=== PATIENT | male | born 1980 | race African-American/Black ===

== ENCOUNTER 2017-04-28 14:06 | Inpatient (IN) | payer OTHER ==
--- NOTE | 2017-04-28 14:44 | ED PDOC ---
HPI: General Adult Time Seen by Provider: 04/28/17 14:30 Chief Complaint (Nursing): Abnormal Labs Chief Complaint (Provider): Myalgias History Per: Patient History/Exam Limitations: no limitations Additional Complaint(s): Patient is a 37 y/o male with past medical history of rhabdomyolysis (no workup for underlying cause) presenting to the emergency department for evaluation of elevated creatinine and CK levels measured at Urgent Care prior to arrival. Patient complains of myalgia and a fever of 102 degrees fahrenheit after working out intensely two days ago. Of note, a rapid strep and rapid flu test were also done at Urgent Care, with negative findings. Denies chest pain, cough , upper respiratory infection symptoms, abdominal pain, nausea, vomiting, diarrhea, or other complaints. Denies medication use PCP: none provided. Past Medical History Reviewed: Historical Data, Nursing Documentation, Vital Signs Vital Signs: Last Vital Signs Temp 99.3 F 04/28/17 16:18 Pulse 79 04/28/17 14:22 Resp 16 04/28/17 14:22 BP 133/66 04/28/17 14:22 Pulse Ox 100 04/28/17 16:19 - Medical History Other PMH: rhabdomyolysis - Surgical History Surgical History: No Surg Hx - Family History Family History: States: Unknown Family Hx - Social History Current smoker - smoking cessation education provided: No Ex-Smoker (has not smoked in the last 12 months): No Alcohol: None Drugs: Denies - Home Medications Home Medications: Ambulatory Orders Medication Instructions Recorded No Known Home Med 04/28/17 - Allergies Allergies/Adverse Reactions: Allergies Allergy/AdvReac Type Severity Reaction Status Date / Time No Known Allergies Allergy Verified 04/28/17 14:21 Review of Systems ROS Statement: Except As Marked, All Systems Reviewed And Found Negative Constitutional: Positive for: Fever, Other (Body aches) ENT: Negative for: Nose Congestion, Throat Pain Cardiovascular: Negative for: Chest Pain Respiratory: Negative for: Cough Gastrointestinal: Negative for: Nausea, Vomiting, Abdominal Pain, Diarrhea Physical Exam - Reviewed Nursing Documentation Reviewed: Yes Vital Signs Reviewed: Yes - Physical Exam Appears: Positive for: Well, Non-toxic, No Acute Distress Head Exam: Positive for: ATRAUMATIC Skin: Positive for: Normal Color, Warm, Dry Eye Exam: Positive for: Normal appearance ENT: Positive for: Normal ENT Inspection Neck: Positive for: Normal, Painless ROM Cardiovascular/Chest: Positive for: Regular Rate, Rhythm. Negative for: Murmur Respiratory: Positive for: Normal Breath Sounds. Negative for: Accessory Muscle Use, Respiratory Distress Gastrointestinal/Abdominal: Positive for: Normal Exam, Soft. Negative for: Tenderness Extremity: Positive for: Normal ROM. Negative for: Pedal Edema Neurologic/Psych: Positive for: Alert, Oriented (x3). Negative for: Motor/ Sensory Deficits - Laboratory Results Result Diagrams: 04/28/17 14:35 04/28/17 14:35 - ECG O2 Sat by Pulse Oximetry: 100 (RA) Pulse Ox Interpretation: Normal Medical Decision Making Medical Decision Making: Time: 14:38 Initial impression: Myalgia Initial plan: CT A/P without contrast Labs Chest X-ray Normal Saline 2 L V Urinalysis Reevaluation Patient will be treated with fluid rehydration. 14:58 Chest X-ray reviewed. Findings noted as follows: LUNGS: No active pulmonary disease. PLEURA: No significant pleural effusion identified, no pneumothorax apparent. CARDIOVASCULAR: Normal. OSSEOUS STRUCTURES: No significant abnormalities. VISUALIZED UPPER ABDOMEN: Normal. OTHER FINDINGS: None. IMPRESSION: No active disease. Scribe Attestation: Documented by Nan Rae, acting as a scribe for Lacie Flores MD. Provider Scribe Attestation: All medical record entries made by the Scribe were at my direction and personally dictated by me. I have reviewed the chart and agree that the record accurately reflects my personal performance of the history, physical exam, medical decision making, and the department course for this patient. I have also personally directed, reviewed, and agree with the discharge instructions and disposition. 15:40 FINDINGS: There is limited evaluation of the solid organs without the administration of IV contrast. LOWER THORAX: No visible consolidation, pleural effusion, or pneumothorax. LIVER: Unremarkable unenhanced appearance. GALLBLADDER AND BILE DUCTS: Unremarkable unenhanced appearance. PANCREAS: Unremarkable unenhanced appearance. SPLEEN: Unremarkable unenhanced appearance. ADRENALS: Unremarkable unenhanced appearance. KIDNEYS AND URETERS: No hydronephrosis or obstructing renal calculus. BLADDER: The urinary bladder appears unremarkable. REPRODUCTIVE: Unremarkable. APPENDIX: The appendix appears within normal limits of caliber. No secondary signs of acute appendicitis. BOWEL: The stomach is nondistended. Lack of oral contrast limits evaluation for bowel pathology. The bowel loops appear within normal limits of caliber without evidence of intestinal obstruction. Moderate constipation. PERITONEUM: No significant free fluid. No definite free air. LYMPH NODES: No bulky lymphadenopathy identified. VASCULATURE: No aortic aneurysm. BONES: No acute osseous abnormality is detected. OTHER FINDINGS: None. IMPRESSION: Moderate constipation. 3:40PM Ct negative for acute pathology. Cxray negative. WBC mildly elevated. Creatinine WNL. CK elevated and rising from CK measured at urgent care ([id number]). Electrolytes WNL. EKG shows NSR at 69bpm with normal intervals and no st changes. Will transfer to med/sx observation under Dr. Boston for IV hydration ED OBSERVATION Date of observation admission: 04/28/17 Time of observation admission: 14:25 - Goals of Observation Goals of Observation: Resolution of symptoms Disposition - Clinical Impression Clinical Impression: Rhabdomyolysis - Disposition Disposition Time: 14:25 Condition: STABLE
[2017-04-28] MEDS ORDERED: Sodium Chloride 0.9% 2,000 ML IV SCH (14:45)
[2017-04-28 14:55] LABS: BASO # 0.1 K/uL (0.0-0.2); BASO % 0.4 % (0.0-2.0); EOS % 0.1 % (0.0-4.0); HEMATOCRIT 46.1 % (35.0-51.0); LYMPH # 1.4 K/uL (1.0-4.3); LYMPH % 9.4 % (20.0-40.0); MEAN CELL VOLUME 86.4 fl (80.0-94.0); MEAN CORPUSCULAR HEMOGLOBIN 28.7 pg (27.0-31.0); MEAN CORPUSCULAR HGB CONC 33.2 g/dL (33.0-37.0); MEAN PLATELET VOLUME 9.2 fl (7.2-11.7); NEUT # 12.4 K/uL (1.8-7.0); NEUT % 83.1 % (50.0-75.0); NRBC % 0.2 % (0.0-0.0); PLATELET COUNT 214 K/uL (130-400); RED CELL DISTRIBUTION WIDTH 13.2 % (11.5-14.5); WHITE BLOOD COUNT 14.9 K/uL (4.8-10.8)
--- NOTE | 2017-04-28 14:59 | RAD ---
HISTORY: Fever. COMPARISON: No prior. FINDINGS: LUNGS: No active pulmonary disease. PLEURA: No significant pleural effusion identified, no pneumothorax apparent. CARDIOVASCULAR: Normal. OSSEOUS STRUCTURES: No significant abnormalities. VISUALIZED UPPER ABDOMEN: Normal. OTHER FINDINGS: None. IMPRESSION: No active disease. Please note: No preliminary report/ innterpretation of this examination provided by emergency department personnel.
[2017-04-28 15:01] LABS: ALB/GLOB RATIO 1.4 (1.0-2.1); ALKALINE PHOSPHATASE 70 U/L (38-126); ALT/SGPT 68 U/L (21-72); AST/SGOT 119 U/L (17-59); BILIRUBIN,TOTAL 1.1 mg/dl (0.2-1.3); BLOOD UREA NITROGEN 10 mg/dl (9-20); CALCIUM 9.7 mg/dL (8.4-10.2); CARBON DIOXIDE 23 mmol/L (22-30); CHLORIDE 104 mmol/L (98-107); GFR AFRICAN-AMERICAN > 60; GLUCOSE,RANDOM 110 mg/dL (75-110); MAGNESIUM 2.3 MG/DL (1.6-2.3); PHOSPHOROUS 3.8 mg/dl (2.5-4.5); SODIUM 143 mmol/l (132-148); TOTAL PROTEIN 8.1 G/DL (6.3-8.2)
[2017-04-28 15:16] LABS: RBC URINE 1 /hpf (0-3); URINE BACTERIA RARE (<OCC); URINE BILIRUBIN NEGATIVE (NEGATIVE); URINE BLOOD MODERATE (NEGATIVE); URINE COLOR STRAW (YELLOW); URINE GLUCOSE (UA) NEG (Normal); URINE KETONE NEGATIVE (NEGATIVE); URINE LEUKOCYTE ESTERASE NEG Leu/uL (Negative); URINE PROTEIN NEGATIVE (NEGATIVE); URINE UROBILINOGEN 0.2-1.0 mg/dL (0.2-1.0)
[2017-04-28 15:35] LABS: WBC URINE < 1 /hpf (0-5)
--- NOTE | 2017-04-28 15:40 | CT ---
PROCEDURE: CT Abdomen and Pelvis without Oral or IV contrast. HISTORY: hematuria, fever COMPARISON: None available. TECHNIQUE: Contiguous axial images of the abdomen and pelvis. No oral or IV contrast administered. Coronal and Sagittal reformats generated and reviewed. Radiation dose: Total exam DLP = 468.72 mGy-cm. This CT exam was performed using one or more of the following dose reduction techniques: Automated exposure control, adjustment of the mA and/or kV according to patient size, and/or use of iterative reconstruction technique. FINDINGS: There is limited evaluation of the solid organs without the administration of IV contrast. LOWER THORAX: No visible consolidation, pleural effusion, or pneumothorax. LIVER: Unremarkable unenhanced appearance. GALLBLADDER AND BILE DUCTS: Unremarkable unenhanced appearance. PANCREAS: Unremarkable unenhanced appearance. SPLEEN: Unremarkable unenhanced appearance. ADRENALS: Unremarkable unenhanced appearance. KIDNEYS AND URETERS: No hydronephrosis or obstructing renal calculus. BLADDER: The urinary bladder appears unremarkable. REPRODUCTIVE: Unremarkable. APPENDIX: The appendix appears within normal limits of caliber. No secondary signs of acute appendicitis. BOWEL: The stomach is nondistended. Lack of oral contrast limits evaluation for bowel pathology. The bowel loops appear within normal limits of caliber without evidence of intestinal obstruction. Moderate constipation. PERITONEUM: No significant free fluid. No definite free air. LYMPH NODES: No bulky lymphadenopathy identified. VASCULATURE: No aortic aneurysm. BONES: No acute osseous abnormality is detected. OTHER FINDINGS: None. IMPRESSION: Moderate constipation.
[2017-04-28 15:50] LABS: NEUTROPHIL 85 % (42-75); TOTAL CELLS COUNTED 100
[2017-04-28] MEDS ORDERED: Sodium Chloride 0.9% 1,000 ML IV SCH (16:30)
[2017-04-28] MEDS: Sodium Chloride 0.9% 1,000 ML IV SCH ×2 (22:14)
--- NOTE | 2017-04-28 22:54 | CP.PCM.HP ---
History of Present Illness - History of Present Illness History of Present Illness: A 37 y/o male with past medical history of rhabdomyolysis (no workup for underlying cause) came to the emergency department for evaluation of elevated creatinine and CK levels measured at Urgent Care prior to arrival. Patient complains of myalgia and a fever of 102 degrees fahrenheit after working out intensely two days ago. Of note, a rapid strep and rapid flu test were also done at Urgent Care, with negative findings. Denies chest pain, cough, upper respiratory infection symptoms, abdominal pain, nausea, vomiting, diarrhea, or other complaints. Denies medication use Present on Admission - Present on Admission Any Indicators Present on Admission: No History of DVT/PE: No History of Uncontrolled Diabetes: No Urinary Catheter: No Decubitus Ulcer Present: No Review of Systems - Cardiovascular Cardiovascular: absent: Chest Pain - Respiratory Respiratory: absent: Cough - Gastrointestinal Gastrointestinal: absent: Abdominal Pain Past Patient History - Past Medical History & Family History Past Medical History?: No - Past Social History Smoking Status: Never Smoked - CARDIAC Hx Cardiac Disorders: No - PULMONARY Hx Respiratory Disorders: No - NEUROLOGICAL Hx Neurological Disorder: No - HEENT Hx HEENT Problems: No - RENAL Hx Chronic Kidney Disease: No - ENDOCRINE/METABOLIC Hx Endocrine Disorders: No - HEMATOLOGICAL/ONCOLOGICAL Hx Blood Disorders: No - INTEGUMENTARY Hx Dermatological Problems: No - MUSCULOSKELETAL/RHEUMATOLOGICAL Hx Falls: No - GENITOURINARY/GYNECOLOGICAL Hx Genitourinary Disorders: No - PSYCHIATRIC Hx Substance Use: No - SURGICAL HISTORY Hx Surgeries: No - ANESTHESIA Hx Anesthesia: No Meds Allergies/Adverse Reactions: Allergies Allergy/AdvReac Type Severity Reaction Status Date / Time No Known Allergies Allergy Verified 04/28/17 14:21 Physical Exam - Constitutional Appears: Non-toxic - Neck Exam Neck exam: Positive for: Full Rom - Respiratory Exam Respiratory Exam: Clear to Auscultation Bilateral, NORMAL BREATHING PATTERN - Cardiovascular Exam Cardiovascular Exam: REGULAR RHYTHM. absent: Systolic Murmur - GI/Abdominal Exam GI & Abdominal Exam: Normal Bowel Sounds, Soft. absent: Tenderness Results - Vital Signs Recent Vital Signs: Last Vital Signs Temp 99.7 F H 04/28/17 18:17 Pulse 77 04/28/17 18:17 Resp 18 04/28/17 18:17 BP 115/71 04/28/17 18:17 Pulse Ox 97 04/28/17 18:17 - Labs Result Diagrams: 04/28/17 14:35 04/28/17 14:35 Labs: Laboratory Results - last 24 hr 04/28/17 04/28/17 04/28/17 14:35 14:35 14:52 WBC 14.9 H RBC 5.34 Hgb 15.3 Hct 46.1 MCV 86.4 MCH 28.7 MCHC 33.2 RDW 13.2 Plt Count 214 MPV 9.2 Neut % (Auto) 83.1 H Lymph % (Auto) 9.4 L [place] % (Auto) 7.0 Eos % (Auto) 0.1 Baso % (Auto) 0.4 Neut # 12.4 H Lymph # 1.4 [place] # 1.0 H Eos # 0.0 Baso # 0.1 Neutrophils % (Manual) 85 H Lymphocytes % (Manual) 10 L Monocytes % (Manual) 5 Platelet Estimate Normal RBC Morphology Normal Sodium 143 Potassium 4.0 Chloride 104 Carbon Dioxide 23 Anion Gap 20 BUN 10 Creatinine 1.2 Est GFR ( Amer) > 60 Est GFR (Non-Af Amer) > 60 Random Glucose 110 Calcium 9.7 Phosphorus 3.8 Magnesium 2.3 Total Bilirubin 1.1 AST 119 H ALT 68 Alkaline Phosphatase 70 Total Creatine Kinase 83866 H Total Protein 8.1 Albumin 4.7 Globulin 3.4 Albumin/Globulin Ratio 1.4 Urine Color Straw Urine Clarity Clear Urine pH 7.0 Ur Specific [place] < 1.005 Urine Protein Negative Urine Glucose (UA) Neg Urine Ketones Negative Urine Blood Moderate Urine Nitrate Negative Urine Bilirubin Negative Urine Urobilinogen 0.2-1.0 Ur Leukocyte Esterase Neg Urine RBC (Auto) 1 Urine Microscopic WBC < 1 Urine Bacteria Rare Assessment & Plan - Assessment and Plan (Free Text) Assessment: rhabdomyolysis Plan: iv hydration follow up CPK - Date & Time Date: 04/28/17 Time: 22:54
[2017-04-29] MEDS: Sodium Chloride 0.9% 1,000 ML IV SCH ×5 (05:45→23:10)
[2017-04-29 06:31] LABS: HEMATOCRIT 42.2 % (35.0-51.0); MEAN CELL VOLUME 86.7 fl (80.0-94.0); MEAN CORPUSCULAR HEMOGLOBIN 28.5 pg (27.0-31.0); MEAN CORPUSCULAR HGB CONC 32.9 g/dL (33.0-37.0); RED CELL DISTRIBUTION WIDTH 13.3 % (11.5-14.5)
[2017-04-29 06:46] LABS: ALB/GLOB RATIO 1.3 (1.0-2.1); ALKALINE PHOSPHATASE 64 U/L (38-126); ALT/SGPT 72 U/L (21-72); AST/SGOT 161 U/L (17-59); BILIRUBIN,TOTAL 0.8 mg/dl (0.2-1.3); BLOOD UREA NITROGEN 8 mg/dl (9-20); CALCIUM 9.1 mg/dL (8.4-10.2); CARBON DIOXIDE 23 mmol/L (22-30); CHLORIDE 109 mmol/L (98-107); GFR AFRICAN-AMERICAN > 60; GLUCOSE,RANDOM 110 mg/dL (75-110); POTASSIUM 4.6 MMOL/L (3.6-5.0); SODIUM 147 mmol/l (132-148)
[2017-04-29 07:06] LABS: THYROID STIMULATING HORMONE 1.51 mIU/ML (0.46-4.68)
--- NOTE | 2017-04-29 08:00 | CP.PCM.PN ---
Subjective - Date & Time of Evaluation Date of Evaluation: 04/29/17 Time of Evaluation: 07:58 - Subjective Subjective: body soreness, especially upper arms Objective - Vital Signs/Intake and Output Vital Signs (last 24 hours): Temp Pulse Resp BP Pulse Ox 100.0 F H 83 18 115/72 98 04/29/17 07:23 04/29/17 07:23 04/29/17 07:23 04/29/17 07:23 04/29/17 07:23 - Medications Medications: Current Medications Acetaminophen (Tylenol 325mg Tab) 650 mg PO Q6 PRN PRN Reason: Fever >100.4 F Last Admin: 04/28/17 23:57 Dose: 650 mg Acetaminophen (Tylenol 325mg Tab) 650 mg PO Q6 PRN PRN Reason: Pain, moderate (4-7) Last Admin: 04/29/17 07:28 Dose: 650 mg Sodium Chloride (Sodium Chloride 0.9%) 1,000 mls @ 1,000 mls/hr IV .Q1H ESPERANZA Stop: 04/29/17 16:17 Last Admin: 04/28/17 17:38 Dose: 1,000 mls/hr Sodium Chloride (Sodium Chloride 0.9%) 1,000 mls @ 100 mls/hr IV .Q10H ESPERANZA Stop: 04/29/17 19:06 Last Admin: 04/29/17 05:45 Dose: Not Given - Labs Labs: 04/29/17 06:00 04/29/17 06:00 - Constitutional Appears: No Acute Distress - Respiratory Exam Respiratory Exam: Clear to Ausculation Bilateral, NORMAL BREATHING PATTERN - Cardiovascular Exam Cardiovascular Exam: REGULAR RHYTHM. absent: Murmur - GI/Abdominal Exam GI & Abdominal Exam: Normal Bowel Sounds Assessment and Plan - Assessment and Plan (Free Text) Assessment: acute rhabdomyolysis Plan: continue iv hydration follow up CPK
[2017-04-29] MEDS ORDERED: Sodium Chloride 0.9% 1,000 ML IV SCH (09:00)
[2017-04-29] MEDS: Benzocaine/Menthol (Cepacol) Lozenge PO PRN ×2 (13:10→17:03)
--- NOTE | 2017-04-29 23:14 | CARD ---
APPROVED REPORT EKG Measurement Heart [id number] <Conclusion> Normal sinus rhythm Normal ECG
[2017-04-30] MEDS: Sodium Chloride 0.9% 1,000 ML IV SCH ×3 (01:05→06:04)
[2017-04-30 06:56] LABS: MEAN CELL VOLUME 86.7 fl (80.0-94.0); MEAN CORPUSCULAR HEMOGLOBIN 28.3 pg (27.0-31.0); MEAN CORPUSCULAR HGB CONC 32.7 g/dL (33.0-37.0); RED CELL DISTRIBUTION WIDTH 13.4 % (11.5-14.5)
[2017-04-30 07:54] LABS: ALB/GLOB RATIO 1.2 (1.0-2.1); ALKALINE PHOSPHATASE 59 U/L (38-126); ALT/SGPT 88 U/L (21-72); AST/SGOT 165 U/L (17-59); BILIRUBIN,TOTAL 0.4 mg/dl (0.2-1.3); BLOOD UREA NITROGEN 7 mg/dl (9-20); CALCIUM 8.9 mg/dL (8.4-10.2); CARBON DIOXIDE 23 mmol/L (22-30); CHLORIDE 109 mmol/L (98-107); GFR AFRICAN-AMERICAN > 60; GLUCOSE,RANDOM 96 mg/dL (75-110); POTASSIUM 4.2 MMOL/L (3.6-5.0); SODIUM 144 mmol/l (132-148); TOTAL PROTEIN 6.8 G/DL (6.3-8.2)
[2017-04-30] MEDS ORDERED: Sodium Chloride 0.9% 1,000 ML IV SCH (14:30)
--- NOTE | 2017-04-30 16:09 | CP.PCM.PN ---
Subjective - Date & Time of Evaluation Date of Evaluation: 04/30/17 Time of Evaluation: 16:07 - Subjective Subjective: a little muscle soreness getting better on iv fluid Objective - Vital Signs/Intake and Output Vital Signs (last 24 hours): Temp Pulse Resp BP Pulse Ox 98.0 F 64 20 117/69 98 04/30/17 09:00 04/30/17 09:00 04/30/17 09:00 04/30/17 09:00 04/30/17 09:00 - Medications Medications: Current Medications Acetaminophen (Tylenol 325mg Tab) 650 mg PO Q6 PRN PRN Reason: Fever >100.4 F Last Admin: 04/28/17 23:57 Dose: 650 mg Acetaminophen (Tylenol 325mg Tab) 650 mg PO Q6 PRN PRN Reason: Pain, moderate (4-7) Last Admin: 04/29/17 23:08 Dose: 650 mg Benzocaine/Menthol (Cepacol Sore Throat) 1 jimmy PO Q3 PRN PRN Reason: Sore Throat Last Admin: 04/29/17 17:03 Dose: 1 jimmy Sodium Chloride (Sodium Chloride 0.9%) 1,000 mls @ 200 mls/hr IV .Q5H ESPERANZA Stop: 05/01/17 14:29 Last Admin: 04/30/17 15:58 Dose: Not Given - Labs Labs: 04/30/17 05:30 04/30/17 05:30 - Constitutional Appears: Non-toxic - Respiratory Exam Respiratory Exam: NORMAL BREATHING PATTERN. absent: Wheezes - Cardiovascular Exam Cardiovascular Exam: REGULAR RHYTHM. absent: Murmur - GI/Abdominal Exam GI & Abdominal Exam: Soft. absent: Tenderness Assessment and Plan - Assessment and Plan (Free Text) Assessment: acute rhabdomyolysis no palpable lymph node normal kidney function CPK was [id number], EQIO=[id number] Plan: patient wants to be discharged today. normal kidney function stable vitals improving symptoms discharge pt home today out patient follow up of CPK Monospot test pending
[2017-04-30 16:30] VITALS: BP 125/83; PULSE 59; RESP 19; TEMP 98.2; O2SAT 97
--- NOTE | 2017-05-01 08:48 | CP.PCM.DIS ---
Provider - Provider Date of Admission: 04/29/17 08:58 Attending physician: Laina Boston MD Primary care physician: with history of rhabdomyolysis came for fever, muscle soreness high CPK enzymes with creatinine Time Spent in preparation of Discharge (in minutes): 30 Hospital Course - Lab Results Lab Results: Micro Results 04/29/17 13:20 Blood Blood Culture - Preliminary NO GROWTH AFTER 24 HOURS 04/29/17 11:00 Blood Blood Culture - Preliminary NO GROWTH AFTER 24 HOURS Most Recent Lab Values WBC 9.0 K/uL (4.8-10.8) 04/30/17 05:30 RBC 4.73 Mil/uL (4.40-5.90) 04/30/17 05:30 Hgb 13.4 g/dL (12.0-18.0) 04/30/17 05:30 Hct 41.0 % (35.0-51.0) 04/30/17 05:30 MCV 86.7 fl (80.0-94.0) 04/30/17 05:30 MCH 28.3 pg (27.0-31.0) 04/30/17 05:30 MCHC 32.7 g/dL (33.0-37.0) L 04/30/17 05:30 RDW 13.4 % (11.5-14.5) 04/30/17 05:30 Plt Count 184 K/uL (130-400) 04/30/17 05:30 MPV 9.2 fl (7.2-11.7) 04/28/17 14:35 Neut % (Auto) 83.1 % (50.0-75.0) H 04/28/17 14:35 Lymph % (Auto) 9.4 % (20.0-40.0) L 04/28/17 14:35 [place] % (Auto) 7.0 % (0.0-10.0) 04/28/17 14:35 Eos % (Auto) 0.1 % (0.0-4.0) 04/28/17 14:35 Baso % (Auto) 0.4 % (0.0-2.0) 04/28/17 14:35 Neut # 12.4 K/uL (1.8-7.0) H 04/28/17 14:35 Lymph # 1.4 K/uL (1.0-4.3) 04/28/17 14:35 [place] # 1.0 K/uL (0.0-0.8) H 04/28/17 14:35 Eos # 0.0 K/uL (0.0-0.7) 04/28/17 14:35 Baso # 0.1 K/uL (0.0-0.2) 04/28/17 14:35 Neutrophils % (Manual) 85 % (42-75) H 04/28/17 14:35 Lymphocytes % (Manual) 10 % (20-50) L 04/28/17 14:35 Monocytes % (Manual) 5 % (0-10) 04/28/17 14:35 Platelet Estimate Normal (NORMAL) 04/28/17 14:35 RBC Morphology Normal (NORMAL) 04/28/17 14:35 Sodium 144 mmol/l (132-148) 04/30/17 05:30 Potassium 4.2 MMOL/L (3.6-5.0) 04/30/17 05:30 Chloride 109 mmol/L (98-107) H 04/30/17 05:30 Carbon Dioxide 23 mmol/L (22-30) 04/30/17 05:30 Anion Gap 16 (10-20) 04/30/17 05:30 BUN 7 mg/dl (9-20) L 04/30/17 05:30 Creatinine 0.9 mg/dL (0.8-1.5) 04/30/17 05:30 Est GFR ( Amer) > 60 04/30/17 05:30 Est GFR (Non-Af Amer) > 60 04/30/17 05:30 Random Glucose 96 mg/dL (75-110) 04/30/17 05:30 Calcium 8.9 mg/dL (8.4-10.2) 04/30/17 05:30 Phosphorus 3.8 mg/dl (2.5-4.5) 04/28/17 14:35 Magnesium 2.3 MG/DL (1.6-2.3) 04/28/17 14:35 Total Bilirubin 0.4 mg/dl (0.2-1.3) 04/30/17 05:30 AST 165 U/L (17-59) H 04/30/17 05:30 ALT 88 U/L (21-72) H D 04/30/17 05:30 Alkaline Phosphatase 59 U/L (38-126) 04/30/17 05:30 Total Creatine Kinase 90055 U/L (55-170) H 04/30/17 05:30 Total Protein 6.8 G/DL (6.3-8.2) 04/30/17 05:30 Albumin 3.8 g/dL (3.5-5.0) 04/30/17 05:30 Globulin 3.0 gm/dL (2.2-3.9) 04/30/17 05:30 Albumin/Globulin Ratio 1.2 (1.0-2.1) 04/30/17 05:30 TSH 3rd Generation 1.51 mIU/ML (0.46-4.68) 04/29/17 06:00 Urine Color Straw (YELLOW) 04/28/17 14:52 Urine Clarity Clear (Clear) 04/28/17 14:52 Urine pH 7.0 (5.0-8.0) 04/28/17 14:52 Ur Specific [place] < 1.005 (1.003-1.030) 04/28/17 14:52 Urine Protein Negative mg/dL (NEGATIVE) 04/28/17 14:52 Urine Glucose (UA) Neg mg/dL (Normal) 04/28/17 14:52 Urine Ketones Negative mg/dL (NEGATIVE) 04/28/17 14:52 Urine Blood Moderate (NEGATIVE) 04/28/17 14:52 Urine Nitrate Negative (NEGATIVE) 04/28/17 14:52 Urine Bilirubin Negative (NEGATIVE) 04/28/17 14:52 Urine Urobilinogen 0.2-1.0 mg/dL (0.2-1.0) 04/28/17 14:52 Ur Leukocyte Esterase Neg [place]/uL (Negative) 04/28/17 14:52 Urine RBC (Auto) 1 /hpf (0-3) 04/28/17 14:52 Urine Microscopic WBC < 1 /hpf (0-5) 04/28/17 14:52 Urine Bacteria Rare (<OCC) 04/28/17 14:52 - Hospital Course Hospital Course: intravenous hydration was done. renal insufficiency improved, creatinine was 0.9 [place] [id number], decreased to 13,000 he wanted be discharged and follow up as an out patient - Date & Time of H&P Date of H&P: 05/01/17 Time of H&P: 08:48 Discharge Exam - Head Exam Head Exam: ATRAUMATIC Discharge Plan - Follow Up Plan Condition: STABLE Disposition: HOME/ ROUTINE Instructions: Rhabdomyolysis (DC)
[2017-05-03 17:18] LABS: EPSTEIN-BARR VCA AB IGM <36.00 U/mL
== END 2017-04-30 17:00 | disposition home or self-care (01) | DRG 558 ==
LOC: H.ER 14:06 → H.EROBSV 14:55 → H.ERHOLD 16:15 → H.MEDSURG1 17:56 → OBSVTOIN 04-29 08:58
PROVIDERS: ADMIT Internal Medicine; ATTEND Internal Medicine
DX: M62.82 Rhabdomyolysis (principal); K59.00 Constipation, unspecified; N28.9 Disorder of kidney and ureter, unspecified; R50.9 Fever, unspecified; R74.8 Abnormal levels of other serum enzymes